=== PATIENT | male | born 1960 | race Caucasian/White ===

== ENCOUNTER → 2019-03-22 | Outpatient (CLI) | payer OTHER ==
[2019-03-22 16:09] LABS: Appearance,Urine Clear (Clear); Bilirubin,Urine Negative (Negative); Blood,Urine Negative (Negative); Color,Urine Light Yellow; Glucose,Urine (UA) Negative (Negative); Ketones,Urine Negative (Negative); Leukocyte Esterase,Urine Negative (Negative); Nitrite,Urine Negative (Negative); Protein,Urine Negative (Negative); Specific Gravity,Urine 1.009 (1.001-1.035); Urobilinogen,Urine <2.0 mg/dL (<2.0)
[2019-03-22 16:18] LABS: HCT 43.2 % (39.0-53.0); HGB 14.9 gm/dL (13.0-17.5); MCH 30.7 pg (25.0-35.0); MCHC 34.6 g/dL (31.0-37.0); MCV 88.8 fL (80.0-100.0); Mean Platelet Volume 6.1; Platelet Count 236 k/uL (150-450); RBC 4.86 m/uL (4.30-5.90); RDW 12.4 % (11.5-15.5); WBC 5.8 k/uL (3.8-10.6)
[2019-03-22 16:24] LABS: ALT 25 U/L (21-72); AST 23 U/L (17-59); African American GFR (CKD) >90 (>60 ml/min/1.73 sqM); Alkaline Phosphatase 61 U/L (38-126); Anion Gap 11 mmol/L; Blood Urea Nitrogen 17 mg/dL (9-20); Calcium 10.1 mg/dL (8.4-10.2); Carbon Dioxide 25 mmol/L (22-30); Chloride 104 mmol/L (98-107); Glucose 95 mg/dL (74-99); INR 0.9 (<1.2); Non-African American GFR(CKD) >90 (>60 ml/min/1.73 sqM); Potassium 3.9 mmol/L (3.5-5.1); Prothrombin Time 10.1 sec (9.0-12.0); Sodium 140 mmol/L (137-145); Total Bilirubin 0.4 mg/dL (0.2-1.3); Total Protein 7.8 g/dL (6.3-8.2)
== END | disposition home or self-care (01) ==
LOC: LABPAT 15:08
PROVIDERS: ATTEND Orthopaedic Surgery
DX: Z01.818 Encounter for other preprocedural examination (principal)
CPT/HCPCS: 36415; 80053; 81003; 85027; 85610; 85730; 87070

== ENCOUNTER 2019-04-03 07:22 | Day surgery (SDC) | payer OTHER ==
[2019-03-29 10:23] VITALS: BMI 26.6
[~2019-04-03 07:22] MED LIST: ACETAMINOPHEN TAB 500 MG TAB PO ONE; DEXAMETHASONE SOD PHOSPHATE 10 MG/ML 1 ML VIAL IV ONE; GABAPENTIN 300 MG CAP PO ONE; HYDROmorphone 0.5 MG/0.5 ML SYRINGE IVP PRN; LIDOCAINE 1% 20 ML VIAL (10MG/ML) FOR IV START INTRADERMA PRN; MELOXICAM 7.5 MG TAB PO ONE; ONDANSETRON 4 MG/2 ML VIAL IVP ONE; ROPIVACAINE 246.25 MG, EPINEPHrine 0.5 MG, KETOROLAC 30 MG, cloNIDine HCL/PF 80 MCG, WA... MISCELLANE ONE; TRANEXAMIC ACID 1,000 MG in SODIUM CHLORIDE 0.9% 100 ML IVPB ONE; fentaNYL (PF) 50 MCG/ML 2 ML AMP IV PRN
[2019-04-03] MEDS: LACTATED RINGERS 1,000 ML IV SCH (08:10)
[2019-04-03] MEDS ORDERED: MIDAZOLAM 2 MG/2 ML VIAL IVP ONE (08:29)
[2019-04-03] MEDS ORDERED: HYDROmorphone 0.5 MG/0.5 ML SYRINGE IVP PRN ×2 (08:52)
[2019-04-03] MEDS ORDERED: hydrOXYzine PAMOATE 25 MG CAP PO PRN (08:52)
[2019-04-03] MEDS ORDERED: DIAZEPAM 5 MG TAB PO PRN (08:52)
[2019-04-03] MEDS ORDERED: HYDROcodone/APAP 5-325MG 1 EACH TAB PO PRN ×2 (08:52)
[2019-04-03] MEDS ORDERED: MAGNESIUM HYDROXIDE 2,400 MG/10 ML CUP PO PRN (08:52)
[2019-04-03] MEDS ORDERED: NALOXONE 0.4 MG/ML 1 ML VIAL IV PRN (08:52)
[2019-04-03] MEDS ORDERED: HYDROmorphone 1 MG/ML 1 ML SYRINGE IVP PRN (08:52)
[2019-04-03] MEDS ORDERED: BISACODYL 10 MG SUPP RECTAL PRN (08:52)
[2019-04-03] MEDS ORDERED: NA PHOS,M-B/NA PHOS,DI-BA 133 ML ENEMA RECTAL PRN (08:52)
[2019-04-03] MEDS ORDERED: ONDANSETRON 4 MG/2 ML VIAL IVP PRN (08:52)
[2019-04-03] MEDS ORDERED: MIDAZOLAM 2 MG/2 ML VIAL ONE (09:17)
[2019-04-03] MEDS ORDERED: PROPOFOL 10 MG/ML 20 ML VIAL IV ONE (09:17)
[2019-04-03] MEDS ORDERED: diphenhydrAMINE 50 MG/ML 1 ML VIAL ONE (09:17)
[2019-04-03] MEDS ORDERED: TRANEXAMIC ACID 1,000 MG/10 ML VIAL ONE (09:17)
[2019-04-03] MEDS ORDERED: fentaNYL (PF) 50 MCG/ML 2 ML AMP ONE (09:17)
[2019-04-03] MEDS ORDERED: SODIUM CHLORIDE 0.9% 100 ML BAG ONE (09:17)
[2019-04-03] MEDS ORDERED: ceFAZolin 3,000 MG in SODIUM CHLORIDE 0.9% IRRIGATIO 3,000 ML IRRIGATION ONE (09:52)
[2019-04-03] MEDS ORDERED: LACTATED RINGERS 1,000 ML IV ONE (10:14)
[2019-04-03] MEDS ORDERED: ROPIVACAINE 0.2%-NS ON-Q PUMP 1,090 MG, EMPTY PAIN BALL 1 EACH MISCELLANE PRN (10:26)
--- NOTE | 2019-04-03 10:40 | P.OP ---
Date of Procedure: 04/03/19 Preoperative Diagnosis: Severe osteoarthritis right knee Postoperative Diagnosis: Severe osteoarthritis right knee Procedure(s) Performed: Right total knee arthroplasty using the [employer] patient specific guides Implants: Alvares and Nephew Journey II CR Oxinium cruciate retaining femoral component size 6, right Alvares [employer] Nephew Journey right nonporous tibial baseplate size 6 Alvares [employer] Nephew Journey II, XLPE CR articular insert, size 9 mm, Size 5-6 right Alvares [employer] Nephew Journey BCS resurfacing oval patellar component, 32 mm All components were cemented using Palacos R bone cement. JCDaire patient specific guides The articulation is Oxinium on polyethylene. Anesthesia: spinal Surgeon: Amilcar Javier Global Marketing Specialist #1: Kelsie Rivera Estimated Blood Loss (ml): 50 Pathology: other (Bone and cartilage) Condition: stable Disposition: PACU Indications for Procedure: After failure of conservative treatment we discussed the surgical and nonsurgical treatment options at length. Patient wishes to proceed with a total knee arthroplasty. Complications specific to this procedure were discussed at length, including but not limited to infection, bleeding, stiffness, and nerve injury. Patient is aware of all these complications and informed consent was obtained Operative Findings: The operative findings are consistent with severe osteoarthritis of the right knee Description of Procedure: Patient was seen in the preoperative area consent was reviewed and operative site was marked with a skin marker. An adductor canal pain catheter was placed by anesthesia in the preoperative area. Patient was then brought to the operating room and given preoperative antibiotics intravenously. A spinal anesthetic was administered by the anesthesia department. A tourniquet was placed on the upper thigh and the lower extremity was prepped and draped in usual sterile fashion. A gram of transexamic acid was given. A universal timeout was then performed which confirmed the patient's name, surgical site, ALLERGIES, and consent. The lower extremity was then exsanguinated and tourniquet was inflated to 250 mmHg. A standard and anterior midline approach to the knee was performed. The skin and subcutaneous tissue was dissected down to the patellar tendon. A medial parapatellar arthrotomy was then performed. The knee was then extended, the patellar was everted, and the knee was again flexed. Anterior horns of both menisci were excised, and a release was performed to the posterior medial aspect of the knee. On gross visual inspection, there was complete loss of articular cartilage in the medial and patellofemoral joint spaces. There was also significant cartilage damage in the lateral compartment. There were multiple periarticular osteophytes. The patient specific guide was placed on the distal femur, and pinned in place. Using the patient specific guide, the distal femoral cut was performed. The cutting block was then removed and the cut was checked for flatness. The appropriate 5-in-1 cutting block was then pinned in place through the holes that were drilled through the patient specific guide. The anterior condyles were cut without notching. The posterior and chamfer cuts were performed while protecting the collateral ligaments. The cutting block was then removed. Attention was then directed to the tibia. The remaining ACL was removed with a Ronguer, and the tibia was then gently subluxed forward with a large bent knee retractor. Any remaining menisci was excised. The posterior lateral corner was cauterized in order to cauterize the lateral geniculate artery. The patient specific guide for the tibia was then placed and was held in place with pins. Pinholes were then placed for rotation of the tibial component as well. Proximal tibia was then cut and sized. Next trials were then placed with the appropriate-sized insert. The knee was able to fully extend and flex to 130 and was stable throughout all range of motion. The knee was then extended, patella everted. Patella was then measured, and then using an osteotomy guide, the patella was cut at the appropriate level. The patella was then measured and drilled and the patella trial was then placed. The knee was then taken through range of motion with the patella trial and the patella tracked normally. The knee was then extended patella trial was then removed and the patella was everted. Knee was then flexed and lug holes were drilled through the femoral trial and the femoral trial was then removed. The tibial was then exposed, and the tibial broach guide was then pinned in place after it was set for the appropriate rotation to allow for the most coverage without overhang. The tibia was then reamed and broached. The cut surfaces of bone were then irrigated with pulsatile lavage. The posterior structures were injected with the ropivacaine solution. The knee was also irrigated with Irrisept solution. The components were then opened, the cement was mixed, and the components were then cemented in place. The cement was allowed to harden with the knee in full extension. While the cement was hardening, the remaining soft tissues were then injected with a ropivacaine solution, which consisted of 246.25 mg of ropivacaine, 0.5 mg of epinephrine, 30 mg of Toradol, 80 g of clonidine, and 48.45 mL of sterile water, for a total of 100 mL of fluid injected. After the cemented hardened. The tourniquet was released, and hemostasis was obtained. A second gram of transexamic acid was given. The knee was again irrigated. The knee was again taken through range of motion and found to be stable throughout all range of motion of 0-130, and the patella tracked normally. The fascia was then closed with #2 strata fix suture. The subcutaneous tissue was closed with 3-0 Vicryl and 3-0 strata fix. Dermabond glue was used for the skin and placed with the knee in flexion. The patient was placed in a sterile silver dressing. Patient was then transferred to recovery room in stable condition. The assistant facility manager CARLINE Vargas was required due the complexity surgery and the need for a skilled operating room surgical technician. She assisted in positioning, draping, retraction, and closure of the wound.
--- NOTE | 2019-04-03 11:53 | XR ---
Right knee HISTORY: Status post right knee arthroplasty Frontal and lateral views of the right knee No comparisons Patient is status post right knee arthroplasty. There is anatomic alignment. Lucencies present in the soft tissues. No fracture or dislocation evident. IMPRESSION: Orthopedic follow-up.
--- NOTE | 2019-04-03 16:18 | P.CONS ---
History of Present Illness - Reason for Consult Consult date: 04/03/19 HTN Requesting physician: Amilcar Javier - Chief Complaint knee pain - History of Present Illness Patient is a 58-year-old male past medical history of arthritis and prior right knee scope, hypertension, dyslipidemia, and prior alcohol use who presented to the hospital for elective right total knee arthroplasty. Today he presented for elective right total knee arthroplasty and tolerated the procedure well. Patient seen and examined at bedside. He states that he has had right knee pain for the last 2 years. He tried conservative management with a right knee scope followed by hyaluronic acid injections into the right knee. Needed they seem to help and his [place] was getting worse he therefore decided to present for elective right total knee arthroplasty. He denies any recent changes in his medications. He has not recently been ill. He denies any recent cough, cold, fever, flu, nausea, or vomiting. He is not having any postoperative complaints. His pain is currently well controlled. He is able to move his legs. He denies any postop nausea, shortness of breath, or headaches. Review of Systems Pertinent positives and negatives as discussed in HPI, a complete review of systems was performed and all other systems are negative. 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 - Past Family History Mother Family Medical History: Cancer Additional Family Medical History / Comment(s): ovarian Brother(s) Family Medical History: Cancer Additional Family Medical History / Comment(s): throat Sister(s) Family Medical History: Diabetes Mellitus Father Family Medical History: Myocardial Infarction (ME) Medications and Allergies Home Medications Medication Instructions Recorded Confirmed Type amLODIPine BESYLATE [Norvasc] 10 mg PO DAILY 08/15/14 04/03/19 History Fish Oil/Dha/Epa [Fish Oil 1,200 1 each PO DAILY 03/29/19 04/03/19 History mg Fish Oil] Ibuprofen [Motrin] 400 mg PO Q8HR PRN 03/29/19 04/03/19 History Allergies Allergy/AdvReac Type Severity Reaction Status Date / Time No Known Allergies Allergy Verified 04/03/19 08:04 Physical Exam Osteopathic Statement: *. No significant issues noted on an osteopathic structural exam other than those noted in the History and Physical/Consult. Vitals: Vital Signs Temp Pulse Pulse Resp BP BP Pulse Ox 04/03/19 14:45 72 119/71 04/03/19 14:30 74 109/75 04/03/19 14:15 80 131/78 04/03/19 14:00 82 127/77 04/03/19 13:45 60 119/72 04/03/19 13:30 59 L 110/73 04/03/19 13:15 64 123/82 04/03/19 13:00 97.7 F 51 L 18 106/67 96 04/03/19 12:30 50 L 16 108/60 95 04/03/19 12:15 51 L 16 102/58 95 04/03/19 12:00 47 L 16 95/58 93 L 04/03/19 11:45 52 L 16 99/62 99 04/03/19 11:30 47 L 16 93/54 93 L 04/03/19 11:15 97.5 F L 68 16 90/56 95 04/03/19 08:54 114/73 04/03/19 07:45 96.9 F L 65 16 136/68 99 Intake and Output 04/03/19 04/03/19 04/03/19 06:59 14:59 22:59 Intake Total 1751 Output Total 425 Balance 1326 Intake: IV 1751 Output: Urine 375 Estimated Blood Loss 50 Other: # Voids 1 Weight 75.296 kg General: non toxic, no distress, appears at stated age, normal weight Derm: no unusual rashes/lesions no unusual ecchymoses, warm, dry Head: atraumatic, normocephalic, symmetric Eyes: EOMI, no lid lag, anicteric sclera, No lid lag ENT: Nose and ears atraumatic, no thrush, no pharyngeal erythema Neck: No thyromegaly, no cervical lymphadenopathy, trachea midline, supple Mouth: no lip lesion, mucus membranes dry Cardiovascular: S1S2 reg, no murmur, positive posterior tibial pulse bilateral, no edema, capillary refill less than 2 seconds Lungs: CTA bilateral, no rhonchi, no rales , no accessory muscle use Abdominal: soft, nontender to palpation, no guarding, no appreciable organomegaly, normal bowel sounds Ext: no gross muscle atrophy, muscle strength 5 out of 5 b/l upper extremities grossly, no contractures, Neuro: CN II-XI grossly intact, light touch intact all 4 extremities, finger to nose within normal limits, Psych: Alert, oriented, appropriate affect Assessment and Plan Assessment: Patient is a 58-year-old male here for elective right total knee arthroplasty. Pain control and DVT prophylaxis per orthopedic surgery. PT/OT. Hypertension, controlled -Resume Norvasc -Follow blood pressures Dyslipidemia -Resume fish oil on discharge Arthritis -Resume Motrin when okay with orthopedic surgery. Thank you for allowing us to participate in the care of this patient. Do not hesitate to contact us with questions. Someone can be reached from the [facility] hospitalist group at all hours of the day at [phone].
[2019-04-03] MEDS: ASPIRIN 325 MG TAB PO SCH ×2 (16:24→21:35)
[2019-04-03] MEDS: MELOXICAM 7.5 MG TAB PO SCH (16:24)
[2019-04-03] MEDS: SODIUM CHLORIDE 0.9% 1,000 ML IV SCH (16:24)
--- NOTE | 2019-04-03 19:40 | P.ANPRN ---
Procedure Note - Anesthesia - Nerve Block Performed Right Adductor Canal Infusion Time Out Performed: Yes Date of Procedure: 04/03/19 Procedure Start Time: : Procedure Stop Time: :39 Location of Patient: PreOp Indication: Acute Post-Operative Pain, Requested by Surgeon Sedation Type: Sedate with meaningful contact maintained Preparation: Sterile Prep, Sterile Dressing Position: Supine Catheter: Indwelling Needle Types: Pajunk Needle Gauge: 21 Ultrasound used to visualize needle placement: Yes Ultrasound used to observe medication spread: Yes Blood Aspirated: No Pain Paresthesia on Injection Noted: No Resistance on Injection: Normal Image Stored and Saved: Yes Events: Uneventful and Well Tolerated (ropi .5% 30cc plus dexamethaone 4mg)
[2019-04-03] MEDS ORDERED: SENNOSIDES-DOCUSATE SODIUM 1 EACH TAB PO SCH (21:00)
[2019-04-04] MEDS: SODIUM CHLORIDE 0.9% 1,000 ML IV SCH (00:50)
[2019-04-04 07:14] LABS: Basophils % (A) 0 %; Eosinophils # (A) 0.1 k/uL (0-0.7); Eosinophils % (A) 1 %; HCT 35.9 % (39.0-53.0); HGB 12.6 gm/dL (13.0-17.5); Lymphocytes # (A) 1.5 k/uL (1.0-4.8); Lymphocytes % (A) 14 %; MCH 31.2 pg (25.0-35.0); MCHC 35.2 g/dL (31.0-37.0); MCV 88.6 fL (80.0-100.0); Monocytes # (A) 0.6 k/uL (0-1.0); Monocytes % (A) 6 %; Neutrophils # (A) 8.5 k/uL (1.3-7.7); Neutrophils % (A) 79 %; Platelet Count 199 k/uL (150-450); RBC 4.05 m/uL (4.30-5.90); RDW 12.3 % (11.5-15.5); WBC 10.9 k/uL (3.8-10.6)
[2019-04-04] MEDS: LACTATED RINGERS 1,000 ML IV SCH (07:25)
--- NOTE | 2019-04-04 07:48 | P.PN ---
Progress Note - Text 04/04 702am 58-year-old male status post total knee replacement by Dr. Amilcar reeves. Patient seen and evaluated for postop pain control this morning, patient has an On-Q pump for postop pain control with solution running at 8 mL an hour with a VAS of 0. Patient was ambulating yesterday in the afternoon. Doing very well. Plan to continue On-Q pump infusion.
[2019-04-04] MEDS ORDERED: amLODIPine 10 MG TAB PO SCH (09:00)
[2019-04-04 09:23] VITALS: BP 121/67; PULSE 80; RESP 16; TEMP 98.1
--- NOTE | 2019-04-04 09:27 | P.DS ---
Providers Expected date of discharge: 04/04/19 Attending physician: Amilcar Javier Consults: 04/03/19 08:52 Consult Physician Routine Consulting Provider: [facility] Consult Reason/Comments: medical management Do you want consulting provider notified?: Yes Primary care physician: Jese Shah - Discharge Diagnosis(es) (1) Osteoarthritis of right knee Current Visit: Yes Status: Acute (2) S/P total knee arthroplasty Current Visit: Yes Status: Acute Hospital Course: This is a 58-year-old male with known history of degenerative arthritis of the right knee. The patient presents for evaluation. After discussion and consideration patient elects to proceed with total knee arthroplasty. The patient is seen preoperatively by Dr. Javier and medically cleared for surgery by their primary care physician. Patient is admitted to [facility] on 04/03/2019 for total knee arthroplasty. The procedures performed without complication or sequelae. The patient is doing well postoperatively. Labs and vital signs are stable on day of discharge. On day of discharge patient's knee incision is healing well. There is minimal erythema. There is no drainage noted at this time. There is minimal soft tissue swelling to the knee. Patient has full foot and ankle motion without difficulty or pain. Calf is soft and nontender to palpation. Neurovascular status to the right lower extremity is intact. Patient is discharged home in good condition. Opioid start talking form is reviewed and signed at patient bedside. Please see med rec for accurate list of home medications. Plan - Discharge Summary Discharge Rx Participant: Yes New Discharge Prescriptions: New Aspirin 325 mg PO BID #60 tab HYDROcodone/APAP 5-325MG [[place] 5-325] 1 - 2 tab PO Q6HR PRN #56 tab PRN Reason: Pain Sennosides [Senokot] 1 tab PO BID #60 tablet No Action amLODIPine BESYLATE [Norvasc] 10 mg PO DAILY Ibuprofen [Motrin] 400 mg PO Q8HR PRN PRN Reason: Pain Fish Oil/Dha/Epa [Fish Oil 1,200 mg Fish Oil] 1 each PO DAILY Discharge Medication List amLODIPine BESYLATE [Norvasc] 10 mg PO DAILY 08/15/14 [History] Fish Oil/Dha/Epa [Fish Oil 1,200 mg Fish Oil] 1 each PO DAILY 03/29/19 [History] Ibuprofen [Motrin] 400 mg PO Q8HR PRN 03/29/19 [History] Aspirin 325 mg PO BID #60 tab 04/04/19 [Rx] HYDROcodone/APAP 5-325MG [[place] 5-325] 1 - 2 tab PO Q6HR PRN #56 tab 04/04/19 [Rx] Sennosides [Senokot] 1 tab PO BID #60 tablet 04/04/19 [Rx] Follow up Appointment(s)/Referral(s): Amilcar Javier DO [Doctor of Osteopathic Medicine] - 04/19/19 2:25 pm Activity/Diet/Wound Care/Special Instructions: Weightbearing as tolerated with a walker. CPM 5-6h daily. Leave dressing intact. May be removed by home care nurse or by patient in 10 days. May shower with dressing on. Recommend use of compression stockings daily for at least 2 weeks during the day to help prevent swelling and blood clots. May remove at night before sleeping. Please follow up with [facility] and call with any questions or concerns, . Discharge Disposition: HOME WITH HOME HEALTH SERVICES
[2019-04-04] MEDS: ASPIRIN 325 MG TAB PO SCH (09:28)
[2019-04-04] MEDS: MELOXICAM 7.5 MG TAB PO SCH (09:28)
--- NOTE | 2019-04-04 20:25 | P.PN ---
Subjective Progress Note Date: 04/04/19 Principal diagnosis: knee pain Patient seen and examined at bedside. Reports that he is doing well. Has been up and ambulating with physical therapy. Pain is well-controlled. No issues with acid reflux on regular basis. Discussed with him that he can use [id number] Prilosec or Protonix as needed for acid reflux when taking aspirin twice daily for 30 days. Objective - Vital Signs Vital signs: Vital Signs Temp 98.1 F 04/04/19 09:21 Pulse 80 04/04/19 09:21 Resp 16 04/04/19 09:21 BP 121/67 04/04/19 09:21 Pulse Ox 97 04/04/19 09:21 Intake & Output 04/03/19 04/04/19 04/04/19 18:59 06:59 18:59 Intake Total 1751 220 Output Total 1125 250 Balance 626 -250 220 Weight 75.296 kg Intake: IV 1751 Oral 220 Output: Urine 1075 250 Estimated Blood Loss 50 Other: Voiding Method Toilet Urinal # Voids 1 1 - Exam General: non toxic, no distress, appears at stated age Derm: warm, dry Head: atraumatic, normocephalic, symmetric Eyes: EOMI, no lid lag, anicteric sclera Mouth: no lip lesion, mucus membranes moist Cardiovascular: S1S2 reg, no murmur, positive posterior tibial pulse bilateral, Lungs: CTA bilateral, no rhonchi, no rales , no accessory muscle use Psych: Alert, oriented, appropriate affect - Labs CBC & Chem 7: 04/04/19 06:49 Labs: Abnormal Lab Results - Last 24 Hours (Table) 04/04/19 Range/Units 06:49 WBC 10.9 H (3.8-10.6) k/uL RBC 4.05 L (4.30-5.90) m/uL Hgb 12.6 L (13.0-17.5) gm/dL Hct 35.9 L (39.0-53.0) % Neutrophils # 8.5 H (1.3-7.7) k/uL Assessment and Plan Assessment: Patient is a 58-year-old male here for elective right total knee arthroplasty. Pain control and DVT prophylaxis per orthopedic surgery. PT/OT. OTC pepcid or Prilosec added to D/C orders free text area if needed for heartburn Hypertension, controlled -Norvasc -Follow blood pressures Dyslipidemia -Fish Oil Arthritis -Resume Motrin when okay with orthopedic surgery. Medically stable for discharge
== END 2019-04-04 11:58 | disposition home health service (06) ==
LOC: OR 07:22 → 4SSUR 11:07 → OR 04-04 11:58
PROVIDERS: ATTEND Orthopaedic Surgery
DX: M17.11 Unilateral primary osteoarthritis, right knee (principal); M21.161 Varus deformity, not elsewhere classified, right knee; M19.072 Primary osteoarthritis, left ankle and foot; I10 Essential (primary) hypertension; E78.5 Hyperlipidemia, unspecified; H91.90 Unspecified hearing loss, unspecified ear; Z98.890 Other specified postprocedural states; Z87.2 Personal history of diseases of the skin and subcutaneous tissue; Z97.3 Presence of spectacles and contact lenses; Z79.899 Other long term (current) drug therapy; Z80.41 Family history of malignant neoplasm of ovary; Z80.8 Family history of malignant neoplasm of other organs or systems; Z83.3 Family history of diabetes mellitus; Z82.49 Family history of ischemic heart disease and other diseases of the circulatory system
CPT/HCPCS: 97161; 64448; 76942; 85025; 88300; 73560; 27447; C1776; J2250; J0171; J1200; J1100; J0690 ×3; J2405; J3010; J1885; J2795 ×2; J2704; J0735

== ENCOUNTER 2020-01-03 07:08 | Day surgery (SDC) | payer OTHER ==
[2020-01-01 10:24] VITALS: BMI 27.1
[~2020-01-03 07:08] MED LIST changes: -ACETAMINOPHEN TAB 500 MG TAB PO ONE; -DEXAMETHASONE SOD PHOSPHATE 10 MG/ML 1 ML VIAL IV ONE; -GABAPENTIN 300 MG CAP PO ONE; -HYDROmorphone 0.5 MG/0.5 ML SYRINGE IVP PRN; +LACTATED RINGERS 1,000 ML IV SCH; -LIDOCAINE 1% 20 ML VIAL (10MG/ML) FOR IV START INTRADERMA PRN; -MELOXICAM 7.5 MG TAB PO ONE; -ONDANSETRON 4 MG/2 ML VIAL IVP ONE; -ROPIVACAINE 246.25 MG, EPINEPHrine 0.5 MG, KETOROLAC 30 MG, cloNIDine HCL/PF 80 MCG, WA... MISCELLANE ONE; -TRANEXAMIC ACID 1,000 MG in SODIUM CHLORIDE 0.9% 100 ML IVPB ONE; -fentaNYL (PF) 50 MCG/ML 2 ML AMP IV PRN
[2020-01-03] MEDS ORDERED: LIDOCAINE 1% (10MG/ML) FOR IV START INTRADERMA ONE (07:26)
[2020-01-03 08:11] VITALS: RESP 18; TEMP 97.3
[2020-01-03] MEDS ORDERED: LACTATED RINGERS 1,000 ML IV ONE (08:25)
[2020-01-03] MEDS ORDERED: PROPOFOL 10 MG/ML 20 ML VIAL IV ONE (08:28)
[2020-01-03] MEDS ORDERED: LIDOCAINE 1% INJ 10MG/ML (20 ML MDV) ONE (08:28)
--- NOTE | 2020-01-03 08:45 | P.PCN ---
Date of Procedure: 01/03/20 Procedure(s) Performed: BRIEF HISTORY: Patient is a 59-year-old pleasant white male scheduled for an elective colonoscopy as a part of screening for colorectal neoplasia and family history of colon cancer. PROCEDURE PERFORMED: Colonoscopy. PREOPERATIVE DIAGNOSIS: Screening for colon cancer/family history of colon cancer. IV sedation per Anesthesia. PROCEDURE: After informed consent was obtained, the patient, was brought into the endoscopy unit. IV sedation was administered by Anesthesia under continuous monitoring. Digital rectal examination was normal. Initially the Olympus CF-160 flexible video colonoscope was then inserted in the rectum, gradually advanced into the cecum without any difficulty. Careful examination was performed as the scope was gradually being withdrawn. Ileocecal valve and the appendiceal orifice were visualized and appeared normal. Prep was excellent. Mucosa of the cecum, ascending colon, transverse colon, descending colon, sigmoid colon, and rectum appeared normal. Scattered sigmoidal diverticulosis seen. Retroflexion was performed in the rectum and small internal hemorrhoids were seen. The patient tolerated the procedure well. IMPRESSION: Normal-appearing colon from rectum to cecum with no evidence of colorectal neoplasia . Scattered sigmoid diverticulosis Small internal hemorrhoids RECOMMENDATIONS: Findings of this examination were discussed with the patient as well as his family. He was advised to have a repeat screening colonoscopy in 5 years because of the family history of colon Cancer.
[2020-01-03 09:04] VITALS: BP 111/74; PULSE 60
== END 2020-01-03 09:32 | disposition home or self-care (01) ==
LOC: ORWHC2ENDO 07:08
PROVIDERS: ATTEND Internal Medicine Gastroenterology
DX: Z12.11 Encounter for screening for malignant neoplasm of colon (principal); K57.30 Diverticulosis of large intestine without perforation or abscess without bleeding; K64.8 Other hemorrhoids; Z80.0 Family history of malignant neoplasm of digestive organs; I10 Essential (primary) hypertension; M19.90 Unspecified osteoarthritis, unspecified site; Z96.651 Presence of right artificial knee joint; Z79.899 Other long term (current) drug therapy; Z98.890 Other specified postprocedural states; Z79.1 Long term (current) use of non-steroidal anti-inflammatories (NSAID)
CPT/HCPCS: J2001; J2704; G0105; 45378

== ENCOUNTER 2024-07-14 10:23 | Day surgery (SDC) | payer MEDICARE, BC ==
[2024-07-12 16:13] VITALS: BMI 28.1
[2024-07-14 11:04] VITALS: TEMP 97.6
[2024-07-14] MEDS: IV FLUID CONTINUATION 1,000 ML IV ONE (11:11)
[2024-07-14] MEDS: LACTATED RINGERS 1,000 ML IV SCH (11:11)
[2024-07-14] MEDS ORDERED: PROPOFOL 10 MG/ML 20 ML VIAL IV ONE (12:18)
--- NOTE | 2024-07-14 12:34 | P.PCN ---
Date of Procedure: 07/14/24 Procedure(s) Performed: BRIEF HISTORY: Patient is a 63-year-old pleasant white meat scheduled for an elective colonoscopy as a part of screening for colorectal neoplasia. His uncle was diagnosed with colon cancer at age 50.. PROCEDURE PERFORMED: Colonoscopy with biopsy. PREOPERATIVE DIAGNOSIS: Screening for colon cancerfamily history of colon cancer. IV sedation per Anesthesia. PROCEDURE: After informed consent was obtained, the patient, was brought into the endoscopy unit. IV sedation was administered by Anesthesia under continuous monitoring. Digital rectal examination was normal. Initially the Olympus CF-160 flexible video colonoscope was then inserted in the rectum, gradually advanced into the cecum without any difficulty. Careful examination was performed as the scope was gradually being withdrawn. Ileocecal valve and the appendiceal orifice were visualized and appeared normal. Prep was excellent. Mucosa of the cecum, ascending colon, transverse colon, descending colon, normal. Scattered left- sided diverticulosis seen. In the sigmoid colon at 25 cm from the anal verge there was an isolated diverticulum that appeared to be inflamed with suppurative material consistent with acute sigmoid diverticulitis. Rest of the sigmoid colon, and rectum appeared normal. Retroflexion was performed in the rectum and small internal hemorrhoid were seen. The patient tolerated the procedure well. IMPRESSION: Acute sigmoid diverticulitis with erythema and purulent material within one of the sigmoid diverticulum Scattered sigmoid diverticulosis Internal hemorrhoids RECOMMENDATIONS: Findings of this examination were discussed with the patient as well as his family.. He was advised to follow with the biopsy results. Continue with a high-fiber diet and fiber supplements on a regular basis. Will be treated with Cipro for 7 days for acute sigmoid diverticulitis. Recommended repeat colonoscopy in 5 years.
[2024-07-14 12:41] VITALS: RESP 16
[2024-07-14 13:09] VITALS: BP 127/79; PULSE 71
== END 2024-07-14 13:18 | disposition home or self-care (01) ==
LOC: ORWHC2ENDO 10:23
PROVIDERS: ATTEND Internal Medicine Gastroenterology
DX: Z12.11 Encounter for screening for malignant neoplasm of colon (principal); K57.32 Diverticulitis of large intestine without perforation or abscess without bleeding; K64.8 Other hemorrhoids; I10 Essential (primary) hypertension; E78.5 Hyperlipidemia, unspecified; Z80.0 Family history of malignant neoplasm of digestive organs; Z90.89 Acquired absence of other organs; Z89.522 Acquired absence of left knee; Z89.521 Acquired absence of right knee; Z79.02 Long term (current) use of antithrombotics/antiplatelets; Z79.899 Other long term (current) drug therapy
CPT/HCPCS: 45380; J2704; 88305